=== PATIENT | female | born 1945 | race Caucasian/White ===

== ENCOUNTER → 2016-08-25 | Outpatient (CLI) | payer MEDICARE, OTHER ==
--- NOTE | 2016-08-25 16:59 | CT ---
EXAM DESCRIPTION: CT NECK WITHOUT THEN WITH IV CONTRAST CLINICAL HISTORY: 71 y/o F, MALIGNANT NEOPLASM OR OROPHARYNX COMPARISON: June 2013 and February 06, 2016 TECHNIQUE: Prior to and after the administration of contrast volumetric CT imaging of the neck was performed. FINDINGS: Nonremovable dental amalgam obscures certain portions of the tongue and oropharynx. The base of tongue and the floor of mouth are grossly unremarkable. The anterior aspect of the floor of mouth is not included on today's study. The mucosa of the nasopharynx is unremarkable. The mucosa of the oropharynx on today's exam demonstrates no gross abnormality. The epiglottis, bilateral AE folds, true and false cords demonstrate edematous changes compatible with radiation. There is no lymphadenopathy noted within the right aspect of the neck. There is no lymphadenopathy noted within the left aspect of the neck. Bilateral parotid glands and bilateral submandibular glands are unremarkable. Thyroid gland is stable. Three vessel aortic arch noted. Atherosclerotic disease noted within bilateral carotid arteries, likely no significant flow rate limiting narrowing. IMPRESSION: The large right oropharyngeal mucosal mass with extension into deep parapharyngeal soft tissues is no longer visualized. There remains minimal thickening of the right aspect of the oropharynx, but no definitive evidence of recurrence on today's study. No lymphadenopathy noted on today's exam to suggest metastatic disease. . Electronically signed by: Matias Campos MD 08/25/2016 16:58
== END | disposition home or self-care (01) ==
LOC: CT 13:27
PROVIDERS: ATTEND Internal Medicine Hematology & Oncology
DX: C10.8 Malignant neoplasm of overlapping sites of oropharynx (principal)

== ENCOUNTER → 2017-01-16 | Outpatient (CLI) | payer MEDICARE, OTHER | END | disposition home or self-care (01) | LOC: CT 09:23 | PROVIDERS: ATTEND Internal Medicine Hematology & Oncology | DX: C10.8 Malignant neoplasm of overlapping sites of oropharynx (principal); C43.70 Malignant melanoma of unspecified lower limb, including hip ==

== ENCOUNTER 2017-03-19 16:32 | Emergency (ER) | payer MEDICARE, OTHER ==
--- NOTE | 2017-03-19 20:04 | ED.PDOC ---
History of Present Illness - General Chief Complaint: Cardiovascular Problem Time Seen by Provider: 03/19/17 16:47 Source: patient Exam Limitations: no limitations - History of Present Illness Initial Comments: he patient is a 71-year-old female presenting to the emergency room secondary to feeling of fatigue and weakness and dizziness. The patient just started a new blood pressure medication today in the form of labetalol 300 mg 3 times daily. Within an hour or 2 of taking it she was feeling dizzy and weak and nauseated. She took her blood pressures systolics were in the 90s. Her normal recent systolic blood pressures have been in the 160s to 190s. She was getting dizzy with moving around. She had also taken 3 hydralazine prior. Timing/Duration: 1-3 hours Severity: moderate Improving Factors: nothing Worsening Factors: movement Associated Symptoms: loss of appetite, malaise, nausea/vomiting, weakness Allergies/Adverse Reactions: Allergies Amoxicillin [From Augmentin] Allergy (Verified 01/14/13 08:40) Clavulanic Acid [From Augmentin] Allergy (Verified 01/14/13 08:40) Codeine Allergy (Verified 01/14/13 08:40) Diazepam [From Valium] Allergy (Verified 01/14/13 08:40) Levofloxacin [From Levaquin] Allergy (Verified 01/14/13 08:40) Meperidine [From Demerol HCl] Allergy (Verified 01/14/13 08:40) Home Medications: Ambulatory Orders Gabapentin [Neurontin] 300 mg PO DAILY 12/19/13 Hydrochlorothiazide 25 mg PO DAILY 12/19/13 Metoprolol Succinate [Metoprolol Succinate ER] 50 mg PO DAILY 12/19/13 Omeprazole [Prilosec] 10 mg PO PRN PRN 12/19/13 Review of Systems - Review of Systems Constitutional: States: malaise, weakness EENTM: States: no symptoms reported Respiratory: States: no symptoms reported Cardiology: States: no symptoms reported Gastrointestinal/Abdominal: States: nausea Genitourinary: States: no symptoms reported Musculoskeletal: States: no symptoms reported Skin: States: no symptoms reported Neurological: States: anxiety, weakness Endocrine: States: no symptoms reported All other Systems: No Change from Baseline Past Medical History (General) - Patient Medical History Hx Stroke: No Hx Dementia: No Hx of COPD: No Hx Cardiac Disorders: No Hx Congestive Heart Failure: No Hx Hypertension: Yes Hx Thyroid Disease: No Hx Diabetes: No Hx Gastroesophageal Reflux: No Hx Renal Disease: No Hx Cancer: Yes - MELANOMA, PHARYNGEAL Surgical History: appendectomy, colectomy, other Family Medical History - Family History Mother Family History: Unknown Physical Exam - Physical Exam General Appearance: Alert, Anxious, No apparent distress Eye Exam: bilateral normal - 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 Ears, Nose, Throat: hearing grossly normal, normal ENT inspection, normal pharynx Neck: full range of motion, supple Respiratory: lungs clear, normal breath sounds, no respiratory distress, no accessory muscle use Cardiovascular/Chest: normal peripheral pulses, regular rate, rhythm, no edema Peripheral Pulses: radial,right: 2+, radial,left: 2+, dorsalis pedis,right: 2+, dorsalis pedis,left: 2+ Gastrointestinal/Abdominal: non tender, soft Rectal Exam: deferred Back Exam: normal inspection, no CVA tenderness Extremity: normal range of motion, non-tender, no pedal edema, normal capillary refill Neurologic: knot bumper II-XII nml as tested, alert, normal mood/affect, oriented x 3 Skin Exam: normal color Comments: Vital Signs - 24 hr 03/19/17 03/19/17 03/19/17 16:45 17:30 18:00 Temperature 97.6 F Pulse Rate [ 87 80 79 APICAL] Respiratory 18 18 13 Rate Blood Pressure 124/67 105/60 108/65 [LEFT BRACHIAL] O2 Sat by Pulse 95 95 95 Oximetry 03/19/17 19:00 Temperature Pulse Rate [ 78 APICAL] Respiratory 18 Rate Blood Pressure 133/78 [LEFT BRACHIAL] O2 Sat by Pulse 95 Oximetry Progress - Progress Progress: 03/19/17 20:04 the patient is a 71-year-old female presenting to the emergency room secondary to symptomatic hypotension that appears to be due to a new blood pressure medication. The patient has been monitored and her blood pressures have improved. Her symptoms have resolved. The patient is to reduce her labetalol to 150 mg twice daily and monitor her blood pressures in between. ER warnings were given. She does need to follow up with her primary care doctor early next week. Departure - Departure Clinical Impression: Hypotension, iatrogenic Disposition: Discharge to Home or Self Care Condition: Fair Departure Forms: ED Discharge - Pt. Copy, Patient Portal Self Enrollment Instructions: DI for Hypotension Diet: regular diet Activity: increase activity as tolerated Referrals: Rolando Wolf MD [Primary Care Provider] - 1-2 Weeks Home Medications: Ambulatory Orders Gabapentin [Neurontin] 300 mg PO DAILY 12/19/13 Hydrochlorothiazide 25 mg PO DAILY 12/19/13 Metoprolol Succinate [Metoprolol Succinate ER] 50 mg PO DAILY 12/19/13 Omeprazole [Prilosec] 10 mg PO PRN PRN 12/19/13 Additional Instructions: the patient is a 71-year-old female presenting to the emergency room secondary to symptomatic hypotension that appears to be due to a new blood pressure medication. The patient has been monitored and her blood pressures have improved. Her symptoms have resolved. The patient is to reduce her labetalol to 150 mg twice daily and monitor her blood pressures in between. ER warnings were given. She does need to follow up with her primary care doctor early next week.
[2017-03-19 20:23] VITALS: BP 109/53; TEMP 97; O2SAT 96
== END 2017-03-19 20:23 | disposition home or self-care (01) ==
LOC: ER 16:32
DX: I95.89 Other hypotension (principal); I10 Essential (primary) hypertension; Z85.820 Personal history of malignant melanoma of skin; Z85.819 Personal history of malignant neoplasm of unspecified site of lip, oral cavity, and pharynx; Z79.899 Other long term (current) drug therapy; Z88.3 Allergy status to other anti-infective agents; Z88.6 Allergy status to analgesic agent

== ENCOUNTER → 2017-04-23 | Outpatient (CLI) | payer MEDICARE, OTHER ==
--- NOTE | 2017-04-24 16:33 | MAM ---
EXAM DESCRIPTION: 3D Screening BILATERAL CLINICAL HISTORY: 71 yearsFemaleSCREENING . No complaints. No family history of breast cancer. Postmenopausal. Has taken HRT less than five years ago. COMPARISON: 2-D digital screening bilateral study 12/27/2014 and 06/01/2013. No prior reports available. TECHNIQUE: Bilateral CC and MLO projection full-field images, 3-D tomosynthesis digital mammographic technique. Also bilateral synthesized CC/ MLO full-field images. CAD not utilized. FINDINGS: The breast parenchymal density pattern is: Heterogeneously dense breast tissue, which may obscure small masses. No skin thickening or nipple retraction bilateral solitary microcalcifications and coarse calcifications. Bilateral vascular calcifications. Other groups of benign type calcifications bilaterally. Bilateral axillary lymph nodes. No focal, stellate mass or density, focal asymmetry , and no suspicious microcalcifications bilaterally. Stable mammograms compared to prior study, taking into account differences in mammographic technique IMPRESSION: BI-RADS CATEGORY: 2 - BENIGN FINDINGS. FOLLOW UP: Routine digital bilateral screening, one year interval from April 2017. Written communication explaining the IMPRESSION and follow-up, will be mailed to the patient and referring health care provider. According to the [employer], yearly mammograms are recommended starting at age 40 and continuing as long as a woman is in good health. Any breast change noted on a breast self-exam should be reported promptly to the patient's healthcare provider. Breast MRI is recommended for women with an approximately 20-25% or greater lifetime risk of breast cancer, including women with a strong family history of breast or ovarian cancer and women who have been treated for Hodgkin's disease. A negative mammographic report should not delay tissue diagnosis in patients with significant clinical history or physical findings. Extremely dense breast tissue limits the sensitivity of digital mammography. Electronically signed by: Toni Grider MD 04/24/2017 4:32 PM CDT
== END | disposition home or self-care (01) ==
LOC: MAMMO 13:00
PROVIDERS: ATTEND Family Medicine
DX: Z12.31 Encounter for screening mammogram for malignant neoplasm of breast (principal)
CPT/HCPCS: 77063; G0202

== ENCOUNTER → 2017-06-18 | Outpatient (CLI) | payer MEDICARE, OTHER ==
--- NOTE | 2017-06-20 17:14 | RAD ---
EXAM DESCRIPTION: Knee,Left Complete CLINICAL HISTORY: 71 years Female, PAIN IN LEFT KNEE COMPARISON: None. FINDINGS: There is no evidence of acute fracture or dislocation or destructive bony lesion. There is slight to moderate narrowing of the medial tibiofemoral joint space. Soft tissue fullness in the suprapatellar region is consistent with joint effusion. IMPRESSION: No acute bony abnormality identified. Medial compartment narrowing. Joint effusion. Electronically signed by: Efren Solis 06/20/2017 5:13 PM [facility]
--- NOTE | 2017-06-20 17:21 | RAD ---
EXAM DESCRIPTION: Pelvis CLINICAL HISTORY: 71 years Female, PAIN IN LEFT HIP COMPARISON: Image from an IVP dated November 03, 2008. FINDINGS: There is no evidence of acute fracture or dislocation or destructive bony lesion. Compared to the previous study, there appears to be slight chronic bony deformity in the left inferior pubic ramus, which may represent an old healed fracture. There are also slightly increased minor hypertrophic bony changes at the greater trochanters bilaterally and the lower margin of the left acetabulum. Both hip joint spaces and the SI joints as visualized appear maintained and symmetrical. IMPRESSION: No acute bony abnormality identified. Minor chronic appearing changes as described above. Electronically signed by: Efren Solis 06/20/2017 5:20 PM [facility]
== END ==
LOC: RAD 08:41
PROVIDERS: ATTEND Orthopaedic Surgery
DX: M25.562 Pain in left knee (principal); M25.552 Pain in left hip; M25.462 Effusion, left knee

== ENCOUNTER → 2017-09-16 | Outpatient (CLI) | payer MEDICARE, OTHER | LOC: GMAJ 10:46 | PROVIDERS: ATTEND Family Medicine | DX: I10 Essential (primary) hypertension (principal) ==

== ENCOUNTER → 2017-09-23 | Outpatient (CLI) | payer MEDICARE, OTHER ==
--- NOTE | 2017-09-23 17:23 | CT ---
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 MPR images are created and reviewed as well. FINDINGS: The left globe appears normal. 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 Lower portions of the brain are unremarkable. Pre and postcontrast imaging is performed. Strandy increased density in the fat along the right side of the base the tongue is noted with thickening of the soft tissues of the right oropharynx. This appears stable compared to the previous study. Findings were previously diagnosed as radiation changes in this patient with treated malignancy. No change in configuration since previous study suggested to suggest recurrent malignancy. Epiglottis appears normal. Slight irregularity of the supraglottic soft tissues is seen. The glottis appears symmetrical. Subglottic trachea is widely patent. Lung apices appear clear. Small left thyroid lesion could be further evaluated with sonography. Atrophic appearance of the submandibular glands is noted bilaterally. Parotid glands appear symmetrical. Normal aeration of tympanic cavities and mastoid air cells and included portions of paranasal sinuses. After IV contrast, there is normal enhancement of the vessels of the [place]. Normal cavernous sinus and transverse sinus and internal jugular enhancement with normal enhancement of the carotid arteries. Calcified plaque is seen at the right carotid bifurcation. Metal artifact related to dental amalgam obscures some levels. Parapharyngeal spaces appear symmetrical superiorly. Medial to the mandibular trigones, left parapharyngeal fat appears clear whereas the right appears infiltrated in a pattern unchanged compared to previous study. Some enhancing vessels are seen in the area but no definite enhancing mass lesion is identified on the postcontrast images to suggest recurrent malignancy. The soft tissue thickness of the posterior wall of the right oropharynx is thickened compared to the left side but unchanged. Coronal and sagittal reformatted images confirm the findings. No cervical adenopathy. Advanced degenerative changes are seen in the mid and lower C-spine. Epiglottis appears somewhat prominent in thickness likely related to previous therapy. No epiglottic mass. Aryepiglottic folds are prominent in thickness as well. IMPRESSION: No change in the appearance of the neck to suggest recurrence of malignancy. This exam was performed according to our departmental dose-optimization program, which includes automated exposure control, adjustment of the mA and/or kV according to patient size and/or use of iterative reconstruction technique. Total DLP equals 658.04 mGycm. Electronically signed by: Chapito Malcolm MD 09/23/2017 5:22 PM [facility]
== END ==
LOC: CT 10:02
PROVIDERS: ATTEND Internal Medicine Hematology & Oncology
DX: C10.8 Malignant neoplasm of overlapping sites of oropharynx (principal); C43.70 Malignant melanoma of unspecified lower limb, including hip

== ENCOUNTER → 2017-10-21 | Outpatient (CLI) | payer MEDICARE, OTHER | END | disposition home or self-care (01) | LOC: LAB.O 10:07 | PROVIDERS: ATTEND Orthopaedic Surgery | DX: M17.12 Unilateral primary osteoarthritis, left knee (principal) ==

== ENCOUNTER → 2017-10-27 | Outpatient (CLI) | payer MEDICARE, OTHER | END | disposition home or self-care (01) | LOC: GMAJ 12:15 | PROVIDERS: ATTEND Family Medicine | DX: E03.9 Hypothyroidism, unspecified (principal) ==

== ENCOUNTER → 2017-11-20 | Outpatient (CLI) | payer MEDICARE, OTHER ==
--- NOTE | 2017-11-20 16:08 | US ---
EXAM DESCRIPTION: Venous,Lower Extremity RT Venous, lower extremity left CLINICAL HISTORY: EFFUSION RT KNEE COMPARISON: None Available. TECHNIQUE: Right and left lower extremity venous duplex FINDINGS: Right Doppler evaluation of the right lower extremity deep veins was performed. Normal color flow is seen in the common femoral, superficial femoral, profunda femoral and greater saphenous veins. Normal flow is seen in the right popliteal vein and veins below the knee in the calf. Normal venous compressibility and flow augmentation. Left Doppler evaluation of the left lower extremity deep veins was performed. Normal color flow is seen in the common femoral, superficial femoral, profunda femoral and greater saphenous veins. Normal flow is seen in the left popliteal vein and veins below the knee in the calf. Normal venous compressibility and flow augmentation. IMPRESSION: Negative for evidence of deep venous thrombosis on right and left lower extremity venous Doppler sonogram. Electronically signed by: Chapito Malcolm MD 11/20/2017 4:07 PM CDT
== END ==
LOC: LAB.O 11:06
PROVIDERS: ATTEND Orthopaedic Surgery
DX: M79.605 Pain in left leg (principal); M25.461 Effusion, right knee

== ENCOUNTER → 2017-11-26 | Outpatient (CLI) | payer MEDICARE, OTHER | LOC: GMAJ 10:53 | PROVIDERS: ATTEND Family Medicine | DX: N30.00 Acute cystitis without hematuria (principal); R30.0 Dysuria ==

== ENCOUNTER → 2017-12-07 | Outpatient (CLI) | payer MEDICARE, OTHER | LOC: GMAJ 12:58 | PROVIDERS: ATTEND Family Medicine | DX: R10.84 Generalized abdominal pain (principal) ==

== ENCOUNTER → 2017-12-08 | Outpatient (CLI) | payer MEDICARE, OTHER | LOC: GMAJ 17:23 | PROVIDERS: ATTEND Family Medicine | DX: R10.84 Generalized abdominal pain (principal); R19.7 Diarrhea, unspecified ==

== ENCOUNTER → 2017-12-17 | Outpatient (CLI) | payer MEDICARE, OTHER | LOC: GMAJ 14:43 | PROVIDERS: ATTEND Family Medicine | DX: R10.84 Generalized abdominal pain (principal) ==

== ENCOUNTER → 2018-01-14 | Outpatient (CLI) | payer MEDICARE, OTHER | LOC: GMAJ 15:26 | PROVIDERS: ATTEND Family Medicine | DX: N30.00 Acute cystitis without hematuria (principal) ==

== ENCOUNTER 2018-02-13 13:22 | Emergency (ER) | payer MEDICARE, OTHER ==
[2018-02-13] MEDS ORDERED: amLODIPine BESYLATE 5 MG TAB PO ONE (14:01)
--- NOTE | 2018-02-13 15:19 | ED.PDOC ---
History of Present Illness - General Chief Complaint: Blood Pressure Problem Stated Complaint: high blood pressure Time Seen by Provider: 02/13/18 13:44 Source: patient Exam Limitations: no limitations - History of Present Illness Initial Comments: the patient is a 72-year-old female presenting to the emergency room secondary to elevated blood pressures the last for 5 days. Systolic blood pressures have been peaking around 200. She was recently changed from valsartan to losartan due to complications with that medication. Her blood pressures have not been controlled since. She does not have any symptoms. No headache chest pain or confusion. No shortness of breath. No signs of congestive heart failure. Timing/Duration: unsure Severity: mild Improving Factors: nothing Worsening Factors: nothing Associated Symptoms: denies symptoms Allergies/Adverse Reactions: Allergies Amoxicillin [From Augmentin] Allergy (Verified 01/14/13 08:40) Clavulanic Acid [From Augmentin] Allergy (Verified 01/14/13 08:40) Codeine Allergy (Verified 01/14/13 08:40) Diazepam [From Valium] Allergy (Verified 01/14/13 08:40) Levofloxacin [From Levaquin] Allergy (Verified 01/14/13 08:40) Meperidine [From Demerol HCl] Allergy (Verified 01/14/13 08:40) Home Medications: Ambulatory Orders Gabapentin [Neurontin] 300 mg PO BID 12/19/13 Metoprolol Succinate [Metoprolol Succinate ER] 100 mg PO BID 12/19/13 Omeprazole [Prilosec] 10 mg PO PRN PRN 12/19/13 Amlodipine Besylate 5 mg PO DAILY #30 tab 02/13/18 Calcium Carbonate-Cholecalcife [Caltrate 600+D] 1 tab PO DAILY 02/13/18 Clonidine HCl 0.1 mg PO BID PRN 02/13/18 Coenzyme Q10 (Ubidecarenone) [Co Q-10] 100 mg PO DAILY 02/13/18 Ezetimibe [Zetia] 10 mg PO DAILY 02/13/18 Fexofenadine HCl [Cassandra Allergy] 180 mg PO DAILY 02/13/18 Levothyroxine Sodium [Synthroid] 0.025 mg PO 0700 02/13/18 Losartan Potassium [Cozaar] 100 mg PO DAILY 02/13/18 Review of Systems - Review of Systems Constitutional: States: no symptoms reported EENTM: States: no symptoms reported Respiratory: States: no symptoms reported Cardiology: States: no symptoms reported Gastrointestinal/Abdominal: States: no symptoms reported Genitourinary: States: no symptoms reported Musculoskeletal: States: no symptoms reported Skin: States: no symptoms reported Neurological: States: no symptoms reported Endocrine: States: no symptoms reported All other Systems: No Change from Baseline Past Medical History (General) - Patient Medical History Hx Seizures: No Hx Stroke: No Hx Dementia: No Hx of COPD: No Hx Cardiac Disorders: No Hx Congestive Heart Failure: No Hx Pacemaker: No Hx Hypertension: Yes Hx Thyroid Disease: Yes Hx Diabetes: No Hx Gastroesophageal Reflux: No Hx Renal Disease: No Hx Cancer: Yes - MELANOMA, PHARYNGEAL - Vaccination History Hx Tetanus, Diphtheria Vaccination: No Hx Influenza Vaccination: No Hx Pneumococcal Vaccination: Yes - Social History Hx Alcohol Use: No Hx Depression: No - Female History Patient is a Female of Child Bearing Age (10 -59 yrs old): No Family Medical History - Family History Mother Family History: Unknown Physical Exam - Physical Exam General Appearance: Alert, Comfortable, No apparent distress Ears, Nose, Throat: hearing grossly normal, normal ENT inspection, normal pharynx Neck: full range of motion, supple Respiratory: lungs clear, normal breath sounds, no respiratory distress, no accessory muscle use Cardiovascular/Chest: normal peripheral pulses, regular rate, rhythm, no edema Peripheral Pulses: radial,right: 2+, radial,left: 2+, dorsalis pedis,right: 2+, dorsalis pedis,left: 2+ Gastrointestinal/Abdominal: non tender, soft Rectal Exam: deferred Extremity: non-tender, no pedal edema, no calf tenderness, normal capillary refill Neurologic: alert, normal mood/affect, oriented x 3 Skin Exam: normal color Comments: Vital Signs - 8 hr 02/13/18 02/13/18 13:36 14:44 Temperature 98.0 F Pulse Rate [ 63 60 Left Brachial] Respiratory 22 16 Rate Blood Pressure 187/102 141/82 [Left Arm] O2 Sat by Pulse 96 98 Oximetry Progress - Progress Progress: 02/13/18 15:18 the patient is a 72-year-old female presenting with moderately uncontrolled hypertension secondary to a required change in her blood pressure medications. she is largely asymptomatic. The patient has responded nicely to a dose of amlodipine. We are going to add a dose of 5 mg of amlodipine daily to her blood pressure medication regimen. If after a couple of days her blood pressures are still not adequately controlled then she can increase this to 10 mg. She does need to inform her primary care doctor of the medication change on Thursday. she can take her next dose tomorrow. ER warnings were given. Departure - Departure Clinical Impression: Chronic hypertension, Uncontrolled hypertension Disposition: Discharge to Home or Self Care Condition: Fair Departure Forms: ED Discharge - Pt. Copy, Patient Portal Self Enrollment Diet: regular diet Activity: increase activity as tolerated Referrals: Rolando Wolf MD [Primary Care Provider] - 1-2 Weeks Prescriptions: Amlodipine Besylate 5 mg PO DAILY #30 tab Home Medications: Ambulatory Orders Gabapentin [Neurontin] 300 mg PO BID 12/19/13 Metoprolol Succinate [Metoprolol Succinate ER] 100 mg PO BID 12/19/13 Omeprazole [Prilosec] 10 mg PO PRN PRN 12/19/13 Amlodipine Besylate 5 mg PO DAILY #30 tab 02/13/18 Calcium Carbonate-Cholecalcife [Caltrate 600+D] 1 tab PO DAILY 02/13/18 Clonidine HCl 0.1 mg PO BID PRN 02/13/18 Coenzyme Q10 (Ubidecarenone) [Co Q-10] 100 mg PO DAILY 02/13/18 Ezetimibe [Zetia] 10 mg PO DAILY 02/13/18 Fexofenadine HCl [Cassandra Allergy] 180 mg PO DAILY 02/13/18 Levothyroxine Sodium [Synthroid] 0.025 mg PO 0700 02/13/18 Losartan Potassium [Cozaar] 100 mg PO DAILY 02/13/18 Additional Instructions: the patient is a 72-year-old female presenting with moderately uncontrolled hypertension secondary to a required change in her blood pressure medications. she is largely asymptomatic. The patient has responded nicely to a dose of amlodipine. We are going to add a dose of 5 mg of amlodipine daily to her blood pressure medication regimen. If after a couple of days her blood pressures are still not adequately controlled then she can increase this to 10 mg. She does need to inform her primary care doctor of the medication change on Thursday. she can take her next dose tomorrow. ER warnings were given.
[2018-02-13 15:29] VITALS: BP 127/87; TEMP 97.4; O2SAT 95
== END 2018-02-13 15:29 | disposition home or self-care (01) ==
LOC: ER 13:22
DX: I10 Essential (primary) hypertension (principal); Z79.899 Other long term (current) drug therapy

== ENCOUNTER → 2018-03-25 | Outpatient (CLI) | payer MEDICARE, OTHER ==
--- NOTE | 2018-03-25 14:01 | CT ---
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 MPR images are created and reviewed as well. FINDINGS: Lung apices appear clear. Inhomogeneity of the thyroid gland may be streak artifact rather than a nodule. No cervical agustina enlargement. Subglottic trachea and glottis appear normal. Normal appearance of the epiglottis. Base of the tongue appears normal. No precervical soft tissue thickening or adenoidal enlargement. Asymmetric lower right parapharyngeal space is consistent with scarring from previous treated tumor in this area. This appears stable compared to September 23, 2017 study. The lower portion of the brain is unremarkable. Hyperdensity in the right orbital region may be prosthetic globe partly included on the study. Sagittal reformatted images confirm the findings. Slightly thickened appearance of the epiglottis is stable compared to previous study. No new mass or growing lesion to suggest recurrent neoplasm. Extensive degenerative changes in the C-spine. IMPRESSION: Stable posttreatment CT examination of the chest with no evidence of recurrent neoplasm. This exam was performed according to our departmental dose-optimization program, which includes automated exposure control, adjustment of the mA and/or kV according to patient size and/or use of iterative reconstruction technique. Total DLP equals 337.31 mGycm. Electronically signed by: Chapito Malcolm MD 03/25/2018 2:00 PM CDT
== END ==
LOC: CT 11:00
PROVIDERS: ATTEND Internal Medicine Hematology & Oncology
DX: C10.8 Malignant neoplasm of overlapping sites of oropharynx (principal); C43.70 Malignant melanoma of unspecified lower limb, including hip

== ENCOUNTER → 2018-04-13 | Outpatient (CLI) | payer MEDICARE, OTHER ==
--- NOTE | 2018-04-13 16:12 | MRI ---
EXAM DESCRIPTION: Cervical Spine: MRI. CLINICAL HISTORY: CERVICAL DISC DISORDER WITH RADICULOPATHY UNSPECIFIED CERV REGION COMPARISON: CT soft tissue neck 09/23/2017. TECHNIQUE: Multiplanar MRI, multiple sequences, non-contrast High-field. FINDINGS: C3-4: No disc desiccation. Disc space preserved. Canal and right neural foramina are patent. Arthrosis in the left facet joint. Moderate narrowing of the left neural foramina. C4-5: Moderate disc space loss and disc desiccation. Anterior and posterior disc bulging. Posterior disc bulge with posterior spurs and bilateral uncinate spurs. Mild canal narrowing. Mild left facet arthrosis. Moderate right neural foraminal stenosis and moderate left neural foraminal narrowing. C5-6: Disc desiccation and moderate disc space loss. No significant posterior bulge. Bilateral uncinate spurs, larger on the right with right neural foraminal stenosis. Moderate left neural foraminal narrowing. Bilateral facet arthrosis. C6-7: Disc desiccation and minimal disc space loss. Endplate erosions. Tiny posterior midline disc bulge not abutting the cord. Posterior ligament hypertrophy. Mild canal narrowing. Right uncinate spur and moderate neural foraminal narrowing. Mild neural foraminal narrowing left. Facets are unremarkable. Normal signal in the remaining discs with no bulging. Disc spaces preserved. Canal and neural foramina are patent. Facets are negative. Spinal alignment shows kyphosis C1-C4.. No cord compression or cord edema. Atlantoaxial joint . Mild arthrosis.. Base of the cerebellar tonsils is at the level of the foramen magnum. Paravertebral soft tissues are unremarkable. Vertebral bodies are not compressed at any level. Normal marrow signal in the remaining vertebral bodies and the posterior elements. IMPRESSION: 1. Multifactorial moderate right neural foraminal stenosis at C4-5. Also seen on the prior CT scan. 2. Right neural foraminal stenosis at C5-6. Also seen on the prior CT scan. 3. Moderate right neural foraminal narrowing at C6-7. Electronically signed by: Toni Grider MD 04/13/2018 4:11 PM CDT
== END ==
LOC: MRI 10:00
PROVIDERS: ATTEND Family Medicine
DX: M50.10 Cervical disc disorder with radiculopathy, unspecified cervical region (principal); M48.02 Spinal stenosis, cervical region

== ENCOUNTER → 2018-05-18 | Outpatient (CLI) | payer MEDICARE, OTHER ==
--- NOTE | 2018-05-20 09:31 | MAM ---
EXAM DESCRIPTION: 3D Screening BILATERAL : Digital Mammography. CLINICAL HISTORY: 72 years Female SCREENING patient complains of lump on left breast. Health provider did not feel the lump. No personal or family history of breast cancer. Childbirth. Postmenopausal 41 years. HRT 5 or more years ago.. Lifetime risk of developing breast cancer (Tyrer-Cuzick model)(%): 3.2. COMPARISON: Bilateral screening digital breast tomosynthesis 04/23/2017. TECHNIQUE: Bilateral CC and MLO projection full-field images, Digital tomosynthesis mammographic technique. Bilateral digital 2-D full-field MLO images. CAD not utilized. FINDINGS: The breast parenchymal density pattern is: Scattered areas of fibroglandular density. No skin thickening or nipple retraction. Bilateral axillary lymph nodes. Bilateral solitary microcalcifications. Bilateral solitary coarse calcifications. No new focal, stellate mass or density, focal asymmetry , and no suspicious microcalcifications bilaterally. Stable mammograms compared to prior study. IMPRESSION: Benign exam. BIRAD CATEGORY: 2 BENIGN FINDINGS. RECOMMENDATIONS: FOLLOW UP: Routine digital bilateral screening, one year interval from April 2018. Written communication explaining the IMPRESSION and follow-up, will be mailed to the patient and referring health care provider. According to the [employer], yearly mammograms are recommended starting at age 40 and continuing as long as a woman is in good health. Any breast change noted on a breast self-exam should be reported promptly to the patient's healthcare provider. Breast MRI is recommended for women with an approximately 20-25% or greater lifetime risk of breast cancer, including women with a strong family history of breast or ovarian cancer and women who have been treated for Hodgkin's disease. A negative mammographic report should not delay tissue diagnosis in patients with significant clinical history or physical findings. Extremely dense breast tissue limits the sensitivity of digital mammography. Electronically signed by: Toni Grider MD 05/20/2018 9:29 AM CDT
== END ==
LOC: MAMMO 05-14 13:03
PROVIDERS: ATTEND Family Medicine
DX: Z12.31 Encounter for screening mammogram for malignant neoplasm of breast (principal)

== ENCOUNTER 2018-06-07 05:55 | Day surgery (SDC) | payer MEDICARE, OTHER ==
[2018-06-07] MEDS ORDERED: TROP 1%/CYCLOPEN 1%/PHENYL 2% DROPS OPHTH ONE (05:56)
[2018-06-07] MEDS ORDERED: PROPARACAINE 0.5% OPHTH SOL 15 ML BTTL LEFT_EYE ONE (16:12)
== END 2018-06-07 16:27 | disposition home or self-care (01) ==
LOC: AMB 05:55
PROVIDERS: ATTEND Ophthalmology
DX: H26.492 Other secondary cataract, left eye (principal); I10 Essential (primary) hypertension; Z88.5 Allergy status to narcotic agent; Z88.1 Allergy status to other antibiotic agents

== ENCOUNTER → 2018-06-07 | Outpatient (CLI) | payer MEDICARE, OTHER ==
--- NOTE | 2018-06-07 19:31 | US ---
EXAM DESCRIPTION: Renal Arteries CLINICAL HISTORY: N18.3 COMPARISON: None. TECHNIQUE: Transcutaneous scanning: Two-dimensional modes. Doppler systolic and diastolic measurements of the abdominal aorta, renal arteries, intra renal arteries, and renal veins. FINDINGS: PSV (cm/sec): Aorta: 48.3 Right renal artery: 111.9 Left renal artery: 142.5 EDV (cm/sec): Right renal artery: 28.3 Left renal artery: 39.3 Renal veins: Visualized. IVC: Visualized. Renal artery RI's: Proximal Right: Not seen Left: Not seen. Middle Right: 0.75 Left: 0.72. Distal Right: 0.72 Left: 0.71 Renal Aortic Ratio: Right RAR = RRA PSV/Aortic PSV = 111.9 /48.3= 2.3. Left RAR = LRA PSV/Aortic PSV = 142.5/48.3 = 2.95. End Diastolic Ratio: Right EDR = RRA EDV/RRA PSV = 28.3/111.9 = 0.253. Left EDR = LRA EDV/LRA PSV = 39.3/142.5= 0.276. Anatomic survey was not performed. IMPRESSION: 1. Elevated renal aortic ratio on the left but no renal artery stenosis. 2. RI values for the renal arteries are borderline abnormal bilaterally. 3. End diastolic ratios are at the lower limit of normal, with no significant renal parenchymal disease Electronically signed by: Toni Grider MD 06/07/2018 7:29 PM [employer]STER [employer]MENT
== END ==
LOC: US 13:52
PROVIDERS: ATTEND Internal Medicine Nephrology
DX: N18.3 Chronic kidney disease, stage 3 (moderate) (principal)

== ENCOUNTER → 2018-07-27 | Outpatient (CLI) | payer MEDICARE, OTHER | LOC: GMAJ 10:26 | PROVIDERS: ATTEND Family Medicine | DX: E03.9 Hypothyroidism, unspecified (principal) ==

== ENCOUNTER → 2018-08-09 | Outpatient (CLI) | payer MEDICARE, OTHER | LOC: GMAJ 16:50 | PROVIDERS: ATTEND Family Medicine | DX: R10.9 Unspecified abdominal pain (principal) ==

== ENCOUNTER → 2018-08-31 | Outpatient (CLI) | payer MEDICARE, OTHER ==
--- NOTE | 2018-08-31 14:54 | US ---
EXAM DESCRIPTION: Abdomen,Complete: Ultrasound. CLINICAL HISTORY: UNSPECIFIED ABDOMINAL PAIN COMPARISON: None Available. TECHNIQUE: Transabdominal scannin-dimensional and Doppler modes. FINDINGS: Gallbladder: Normal size. Single echogenic stone mobile with patient change in position. 8 millimeter diameter. Normal wall thickness 1.2 mm. No surrounding fluid. Nontender with transducer pressure. Common bile duct: 5.7 mm normal caliber. Liver: Normal echogenicity. 15.7 cm long axis right lobe. Normal ducts and normal flow direction and caliber of the portal vein. Pancreas: Normal size of the included segment and echogenicity. Duct not seen. Abdominal aorta: Normal caliber from proximal segment to the distal bifurcation. IVC: visualized; normal caliber. Spleen normal echogenicity; long axis measurement is 10.2 cm. Right kidney: 9.1 cm long axis. Normal cortical echogenicity and thickness. No hydronephrosis or perinephric fluid. Normal vascularity. Left kidney: 9.7 cm long axis. Normal cortical echogenicity and thickness. No hydronephrosis or perinephric fluid. Normal vascularity. IMPRESSION: 1. Small mobile gallstone in the gallbladder with no wall thickening or surrounding fluid. Nontender with the transducer. 2., Bile duct nondistended. Normal ultrasound of the liver, pancreas, and spleen. No ascites. 3. Bilateral kidneys are unremarkable. Normal caliber of the abdominal aorta and the IVC. Electronically signed by: Toni Grider MD 08/31/2018 2:51 PM PERSONAL FINANCIAL ADVISOR
== END ==
LOC: US 10:00
PROVIDERS: ATTEND Family Medicine
DX: K80.20 Calculus of gallbladder without cholecystitis without obstruction (principal)

== ENCOUNTER → 2018-09-08 | Outpatient (CLI) | payer MEDICARE, OTHER ==
--- NOTE | 2018-09-08 15:50 | RAD ---
EXAM: Abdomen Flat Upright CLINICAL HISTORY: R10.11 RUQ PAIN COMPARISON STUDY: None. TECHNICAL: Flat and upright abdomen images FINDINGS: Non-obstructive gas pattern. The bony structures are grossly normal. A calcification in the left pelvis is in the region of the left distal ureter that could be a phlebolith. Postoperative changes are seen in the right lower quadrant. Calcified granulomata are seen in both lungs. IMPRESSION: 1. No bowel obstruction or free air. 2. 3 x 3.5 mm left pelvic calcification is a phlebolith versus a left distal ureteral calculus. Electronically signed by: Modesto Castro MD 09/08/2018 3:47 PM CREATIVE INTERN
== END ==
LOC: RAD 11:34
PROVIDERS: ATTEND Surgery
DX: R10.11 Right upper quadrant pain (principal)

== ENCOUNTER → 2019-03-16 | Outpatient (CLI) | payer MEDICARE, OTHER | LOC: LAB.O 10:07 | PROVIDERS: ATTEND Otolaryngology | DX: R13.10 Dysphagia, unspecified (principal); J39.8 Other specified diseases of upper respiratory tract; J38.7 Other diseases of larynx; K22.2 Esophageal obstruction ==

== ENCOUNTER 2019-03-30 11:14 | Inpatient (IN) | payer MEDICARE, OTHER ==
--- NOTE | 2019-03-30 11:15 | HP ---
SUPERVISING PHYSICIAN: Rolando Wolf MD CHIEF COMPLAINT: Acute renal failure. HISTORY OF PRESENT ILLNESS: This is a 73 year-old female who presented from Dr. Wolf office directly. She has a history of throat cancer and actually requires dilation on occasion. She had this last Thursday, woke up from the anesthesia generally not feeling well. Since that time, she has still not felt well, decreased appetite and has not taken much p.o. She had a followup yesterday and was cleared by the surgeon who did that, however, still did not feel well. She has no complaints of fever or chills. She did see Dr. Wolf today and she did not look well at that time. Strep test was done and it was positive for streptococcal pharyngitis. She was given a dose of Rocephin but also had additional labs done which included CBC and chemistry. CBC was pretty much unremarkable, however, she did have a significantly elevated creatinine to 6.6. She does have some chronic renal failure but her baseline is 1.4. For that reason, she was referred for a direct admission. Final Examination: The patient is alert and oriented. She does not have any significant fever to speak of, no chills but general malaise. She also had epigastric discomfort as well. PAST MEDICAL HISTORY: 1. Hypertension. 2. Cholelithiasis. 3. Colon polyps. 4. Diverticulosis. 5. Gastroesophageal reflux disease. 6. Arthritis. 7. History of colon cancer. 8. History of melanoma. 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 11. Hemorrhoids. PAST SURGICAL HISTORY: 1. Tonsillectomy. 2. Bladder suspension. 3. Hysterectomy. 4. Bilateral salpingo-oophorectomy. 5. Right eye enucleation. 6. Hemicolectomy. 7. Colonoscopy, EGDs CURRENT MEDICATIONS: Please see EMR once they are verified in the computer. ALLERGIES: Avelox, Bactrim, Demerol, Augmentin, Celexa, Crestor, Levaquin, Lorabid, mycin antibiotics, Norvasc, Zetia, Zyrtec. FAMILY HISTORY: Her father of emphysema. Her mother had hypertension and hyperlipidemia. She lives in a skilled nursing. SOCIAL HISTORY: She is a former smoker, has occasional alcohol use. No illicit drugs. REVIEW OF SYSTEMS: CONSTITUTIONAL: No fever, chills, recent weight loss or weight gain. Positive for malaise. HEENT: Throat pain but no vision changes, ear pain, nasal congestion. RESPIRATORY: No cough. No hemoptysis. No pleuritic chest pain. CARDIOVASCULAR: No chest pain, palpitations or peripheral edema. . GASTROINTESTINAL: Positive for some epigastric abdominal discomfort. No nausea, vomiting, diarrhea, constipation. GENITOURINARY: No history of frequency or flank pain. She has had decreased urine output. MUSCULOSKELETAL: No joint pain, joint swelling or muscle cramps. NEUROLOGIC: No seizures or syncope. No paresthesias. ENDOCRINE: No polydipsia, polyuria or polyphagia. No heat or cold intolerance. HEMATOLOGIC: No easy bruising and no transfusion reactions. PHYSICAL EXAMINATION: GENERAL: This is a 73 year-old female who is without acute distress. HEENT: Normocephalic and atraumatic. Left pupil is reactive, right has artificial. Nose with no drainage. Throat with erythema, no exudate. CHEST: Lungs are clear to auscultation bilaterally. CARDIOVASCULAR: Regular rate and rhythm, normal S1, S2. ABDOMEN: Soft, positive bowel sounds. EXTREMITIES: Lower extremities with no edema, 2+ pulses, capillary refill less than 2 seconds. NEUROLOGIC: The patient is alert and oriented. LABORATORY: From the office shows a sodium of 134, potassium 4.1, chloride 95, C02 of 24, BUN 54, creatinine 6.6, glucose 123, calcium 8.7. White blood cell count 8.3, hemoglobin 14.2, hematocrit 40.8. Platelet count of 195,000. Strep screen was positive. ASSESSMENT: 1. Acute on chronic renal failure. 2. Streptococcal pharyngitis. 3. Hypertension. 4. History of throat cancer status post throat dilation. 5. Hypothyroidism. 6. Gastroesophageal reflux disease. PLAN: At this time, the patient will be admitted for fluid resuscitation. Her pole river was contacted, who I believe is Dr. Meyers, and once we give some fluids will see how her BUN and creatinine do. Suspect that this is acute tubular necrosis and should respond to fluids fairly well. There is an off chance that this is due to glomerulonephritis, however, unlikely at this time. Will resume her home medications once they are updated and verified. We placed her on DVT and GI ulcer prophylaxis as well as IV antibiotics for streptococcal pharyngitis until she is taking p.o. better. [facility][id number] [facility]
[2019-03-30] MEDS ORDERED: SODIUM CHLORIDE 0.9% (FLUSH) 10 ML SYG IV PRN (12:15)
[2019-03-30] MEDS ORDERED: SODIUM CHL 0.9% 50ML MIN-BAG+ 50 ML IVPB ONE (12:24)
[2019-03-30] MEDS ORDERED: cefTRIAXone SODIUM 1 GM VIAL ONE (12:24)
[2019-03-30] MEDS ORDERED: IV SET AND CAP CHANGE INJ INJ SCH (12:30)
[2019-03-30] MEDS ORDERED: ENOXAPARIN SODIUM 30 MG/0.3 ML SYG SUBCU SCH (12:30)
[2019-03-30] MEDS ORDERED: PANTOPRAZOLE SODIUM IV 40 MG VIAL IV SCH (12:30)
[2019-03-30] MEDS: SODIUM CHLORIDE 0.9% 1000ML 1,000 ML IVS PRN ×2 (13:03→20:31)
[2019-03-30] MEDS ORDERED: SODIUM CHLORIDE 0.9% 1000ML 1,000 ML IVS PRN (13:36)
[2019-03-30] MEDS: cefTRIAXone SODIUM 1 GM in SODIUM CHL 0.9% 50ML MIN-BAG+ 50 ML IVPB SCH (13:56)
[2019-03-30] MEDS: GABAPENTIN 100 MG CAP PO SCH (20:36)
[2019-03-30] MEDS ORDERED: traMADol HCL 50 MG TAB PO PRN (20:40)
[2019-03-31] MEDS: SODIUM CHLORIDE 0.9% 1000ML 1,000 ML IVS PRN (03:53)
[2019-03-31] MEDS: PANTOPRAZOLE SODIUM IV 40 MG VIAL IV SCH (06:16)
[2019-03-31] MEDS: LEVOTHYROXINE SODIUM 0.025 MG TAB PO SCH (06:16)
[2019-03-31] MEDS ORDERED: SODIUM BICARBONATE VIAL 100 MEQ in DEXTROSE 5% 1000ML 1,000 ML IVS PRN (06:42)
[2019-03-31] MEDS ORDERED: SODIUM CHLORIDE 0.9% 1000ML 1,000 ML IVS ONE (06:43)
[2019-03-31] MEDS ORDERED: DEXTROSE 5% 1000ML 1,000 ML IVS ONE (07:56)
[2019-03-31] MEDS ORDERED: SODIUM BICARBONATE VIAL 50 MEQ/50 ML VIAL ONE (07:56)
[2019-03-31] MEDS: EZETIMIBE 10 MG TAB PO SCH (09:57)
[2019-03-31] MEDS: LORATADINE 10 MG TAB PO SCH (09:58)
[2019-03-31] MEDS: GABAPENTIN 100 MG CAP PO SCH ×2 (09:58→20:30)
[2019-03-31] MEDS ORDERED: SODIUM BICARBONATE VIAL 100 MEQ in DEXTROSE 5% 1000ML 1,000 ML IVS ONE (10:02)
--- NOTE | 2019-03-31 11:24 | PN ---
SUPERVISING PHYSICIAN: Rolando Wolf MD DATE: 03/31/19 SUBJECTIVE: The patient is lying in bed. She feels much better today. She denies shortness of breath, chest pain or nausea or vomiting. Her throat still hurts but is improved since yesterday. We discussed her plan of care and I will be calling Dr. Lawrence, her link trainer teacher, for recommendations. OBJECTIVE: VITAL SIGNS: Temperature 98.6, heart rate 77, blood pressure 105/62, respiratory rate 16, oxygen saturation 94% on room air. HEENT: Her throat is erythematous but no exudate noted. RESPIRATORY: Essentially clear to auscultation bilaterally. CARDIAC: Regular rate and rhythm. GI: Abdomen is soft, non-tender, nondistended. Bowel sounds are positive. NEUROLOGIC: She is awake, alert, and oriented x3. LABORATORY: CBC is unremarkable. Sodium 131, potassium 3.8, chloride 97, carbon dioxide 20, BUN 59, creatinine 7.18, calcium 7.9, All other labs and films have been reviewed via the EMR. ASSESSMENT: 1. Acute on chronic renal failure, baseline is 1.4, admission 6, today 7.6. 2. Streptococcal pharyngitis. 3. Hypertension. 4. History of throat cancer status post throat dilation. 5. Hypothyroidism. 6. Gastroesophageal reflux disease. PLAN: We will continue present supportive care. I spoke with Dr. Lawrence. her link trainer teacher in [facility]. He recommended we give one bag of IV fluids that contain sodium/bicarb and his biggest concerns are her potassium and her C02 as well as her urine output. I have ordered labs for in the morning and have also ordered strict I&O every 4 hours. She may need additional fluid bolus. Will continue with the Rocephin. He also would like to see her after discharge next week and I will send her to Dr. Wolf office at discharge and he can do a followup appointment with Dr. Lawrence at that time. He also said that her creatinine may go up before it comes down but that if we hydrate her well and her urine output is good, her creatinine should slowly improve. Her ARB has not been restarted nor has her Hydrochlorothiazide and we are to keep those on hold for right now and will continue to monitor close and follow as needed. [id number] [facility]
[2019-03-31] MEDS: HEPARIN SODIUM (PORCINE) 5,000 U/ML VIAL SUBCU SCH ×2 (12:22→23:56)
[2019-03-31] MEDS ORDERED: SODIUM CHL 0.9% 50ML MIN-BAG+ 50 ML IVPB ONE (13:30)
[2019-03-31] MEDS ORDERED: cefTRIAXone SODIUM 1 GM VIAL ONE (13:31)
[2019-03-31] MEDS: cefTRIAXone SODIUM 1 GM in SODIUM CHL 0.9% 50ML MIN-BAG+ 50 ML IVPB SCH (13:33)
[2019-04-01] MEDS: PANTOPRAZOLE SODIUM IV 40 MG VIAL IV SCH (06:04)
[2019-04-01] MEDS: LEVOTHYROXINE SODIUM 0.025 MG TAB PO SCH (06:25)
[2019-04-01] MEDS: LORATADINE 10 MG TAB PO SCH (08:08)
[2019-04-01] MEDS: GABAPENTIN 100 MG CAP PO SCH ×2 (08:09→20:39)
[2019-04-01] MEDS: EZETIMIBE 10 MG TAB PO SCH (08:09)
[2019-04-01] MEDS: HEPARIN SODIUM (PORCINE) 5,000 U/ML VIAL SUBCU SCH ×2 (11:55→23:56)
[2019-04-01] MEDS ORDERED: SODIUM CHL 0.9% 50ML MIN-BAG+ 50 ML IVPB ONE (14:20)
[2019-04-01] MEDS ORDERED: cefTRIAXone SODIUM 1 GM VIAL ONE (14:21)
[2019-04-01] MEDS: cefTRIAXone SODIUM 1 GM in SODIUM CHL 0.9% 50ML MIN-BAG+ 50 ML IVPB SCH (14:22)
[2019-04-01] MEDS ORDERED: AZITHROMYCIN 250 MG TAB PO ONE (15:37)
--- NOTE | 2019-04-01 17:23 | PN ---
DATE: 04/01/19 SUPERVISING PHYSICIAN: Rolando Wolf M.D. SUBJECTIVE: The patient is lying in bed. She does feel better. Her throat is less sore. Denies chest pain or shortness of breath. She did complain of a rash on her right upper leg. She is not taking any new medications except Rocephin which she was given in the hospital. It is mildly pruritic. OBJECTIVE: VITAL SIGNS: Temperature 98.4, heart rate 71, blood pressure 131/87, respiratory rate 17, O2 sat 94% on room air. RESPIRATORY: Essentially clear to auscultation bilaterally. CARDIAC: Regular rate and rhythm. GASTROINTESTINAL: Abdomen is soft, nondistended, non-tender. Bowel sounds are positive. SKIN: She does have an erythematous wheel type rash on her right upper thigh. There is no drainage noted. NEUROLOGIC: She is awake, alert and oriented times three. LABORATORY: CBC is basically unremarkable. Sodium 132, potassium 3.6, chloride 95, carbon dioxide 23, BUN 53, creatinine has improved to 6.11. All other labs and films have been reviewed via the EMR. ASSESSMENT: 1. Acute on chronic renal failure, baseline is 1.4. Admission creatinine was 6, today it is 6.11. 2. Streptococcal pharyngitis. 3. Hypertension. 4. Mildly pruritic wheel type rash on her right upper leg of unknown etiology. 5. History of throat cancer status post throat dilation. 6. Hypothyroidism on supplementation. 7. Gastroesophageal reflux disease. PLAN: We will continue present supportive care. Her IV site was not patent, so it was discontinued and all of her IV medications were stopped. Due to the rash I have stopped the Rocephin, although the patient has had Rocephin in the past without any problems and I will change her to azithromycin. I spoke with her civil service worker, Dr. Mathew, and he was pleased with her progress. He agreed to continue present plan of care with close urine output monitoring. She is to see Dr. Wolf on Thursday. He would like to see her in office next week. He also recommended that she not be continued on her ARB or her Hydrochlorothiazide. I have ordered lab for in the morning. Will continue to monitor closely and follow as needed. #[id number] [facility]
[2019-04-02] MEDS ORDERED: PANTOPRAZOLE SODIUM TAB 40 MG PO SCH (06:30)
[2019-04-02 06:31] VITALS: TEMP 98.1
[2019-04-02] MEDS: LEVOTHYROXINE SODIUM 0.025 MG TAB PO SCH (06:33)
[2019-04-02] MEDS: LORATADINE 10 MG TAB PO SCH (08:05)
[2019-04-02] MEDS: EZETIMIBE 10 MG TAB PO SCH (08:05)
[2019-04-02] MEDS: GABAPENTIN 100 MG CAP PO SCH (08:05)
[2019-04-02] MEDS ORDERED: SODIUM CHLORIDE 0.9% (FLUSH) 10 ML SYG IV PRN (08:16)
[2019-04-02] MEDS ORDERED: POTASSIUM CHLORIDE 20 MEQ TAB PO ONE (08:31)
[2019-04-02] MEDS ORDERED: AZITHROMYCIN 250 MG TAB PO SCH (09:00)
[2019-04-02] MEDS ORDERED: SODIUM CHLORIDE 0.9% (FLUSH) 10 ML SYG IV SCH (09:00)
[2019-04-02] MEDS ORDERED: METOPROLOL SUCCINATE XL 50 MG TAB PO SCH (10:30)
[2019-04-02] MEDS ORDERED: METOPROLOL SUCCINATE XL 100 MG TAB PO ONE (10:52)
[2019-04-02] MEDS ORDERED: METOPROLOL SUCCINATE XL 50 MG TAB ONE (10:55)
[2019-04-02 11:29] VITALS: BP 133/69; O2SAT 99
[2019-04-02] MEDS ORDERED: MAGNESIUM CHLORIDE 64 MG TAB PO SCH (17:00)
--- NOTE | 2019-04-03 21:37 | DS ---
SUPERVISING PHYSICIAN: Rolando Wolf M.D. DISCHARGE DIAGNOSIS: 1. Acute on chronic renal failure, baseline creatinine is 1.4. Admission creatinine initially was 6 and went up to 7.18. Today it is 4.61. 2. Streptococcal pharyngitis. 3. Hypertension on medications. 4. Mildly pruritic wheel type rash on her right upper leg of unknown etiology, may be due to Rocephin administration, although the patient has taken Rocephin in the past without issues. 5. History of throat cancer status post throat dilation. 6. Hypothyroidism on supplementation. 7. Gastroesophageal reflux disease. HISTORY OF PRESENT ILLNESS: This is a 73 year-old female patient who had seen her family physician, Dr. Wolf. She has a history of throat cancer and actually requires dilation occasionally. The previous Thursday she had dilation done and woke up from the anesthesia and she generally just did not feel well. She has progressively worsened with a decreased appetite and has taken very little oral intake. She had seen her surgeon the day prior to seeing Dr. Wolf and she was cleared from his perspective, but she continued to feel poorly. There were no complaints of fever or chills. She went to see Dr. Wolf. A Strep test was done and it was positive for Streptococcal pharyngitis. She was given a dose of Rocephin at the office and then had additional labs done which included a CBC and chemistry. Her CBC was fairly unremarkable, however she did have a significantly elevated creatinine of 6.6. She has some chronic renal insufficiency but her baseline creatinine is 1.4. She was directly admitted to the hospital and her housing counselor, Dr. Mathew, was called by Dr. Wolf for recommendations. HOSPITAL COURSE: The patient was placed in the hospital and given fluid resuscitation. Her home medications were resumed with the exception of her Losartan and Hydrochlorothiazide. DVT prophylaxis was started as well as GI ulcer prophylaxis. She was also continued on Rocephin for Streptococcal pharyngitis. She was placed in clear liquids due to her feeling poorly and her diet was advanced as tolerated. Dr. Mathew, her housing counselor, was contacted and he felt that 1 bag of IV fluids with sodium bicarb would be sufficient to help with her renal issues. Then she was titrated off of her fluids as her oral intake improved. His most concern was with her urine output as well as watching her CO2 and potassium. Her labs were monitored closely. On the third day she was here, she complained of a wheel-like rash on her right upper thigh. The only new medication that she has received was Rocephin and she has taken that in the past without any problems, but the Rocephin was discontinued and she was started on azithromycin. Her creatinine continued to improve as well as her CO2 normalized. Potassium remained normal until this morning and it was slightly low at 3.2 and required supplementation. Magnesium was also low and she required supplementation for that as well. Dr. Mathew was contacted yesterday and felt like she could be discharged with close followup with Dr. Wolf. Clinically the patient has improved to the point that she will be discharged home today in stable condition. LABORATORY: WBCs remained stable around 5.6 and today it was 4.5. Hemoglobin and hematocrit were 11.6 and 33.9. The remainder of her CBC was unremarkable. Sodium was slightly low on admission at 131 and today it has normalized to 135. Potassium remained normal until today at 3.2 and she received supplementation. Chloride was slightly low and ran between 95 and 97. Carbon dioxide initially was 20 and is now 24. BUN was 59 on admission and has improved to 48 today. Creatinine maximum elevation was 7.18 and today it is 4.61. Calcium was initially 7.9 and today is 8.4. Magnesium was low yesterday at 1.6 and she required supplementation. RADIOLOGY: There were no radiology reports to report. DISCHARGE PLAN: The patient will be discharged home in stable condition. She is to resume her previous diet. It is recommended that she start with a bland diet and advanced it as tolerated. She has a followup with Dr. Wolf on 04/04/19 at 2:00 PM. At that time it is recommended that she get a BMP plus a magnesium. In addition to her routine medications, she is to continue with 3 tablets of azithromycin for her Strep infection. Per the recommendations of Dr. Mathew, she is to discontinue her Losartan as well as Hydrochlorothiazide until she sees him after discharge. At her appointment with Dr. Wolf, Dr. Mathew would like to be contacted as he would like to see her later in the week in clinic and would like a report on her kidney function at the time of her appointment with Dr. Wolf. Again, he said for her not to take her Losartan or HCTZ. She is to return to the hospital or call Dr. Wolf' office for any problems or complications. DISCHARGE MEDICATIONS: 1. Metoprolol. 2. Gabapentin. 3. Levothyroxine. 4. Zetia. 5. Cassandra. 6. Clonidine. 7. azithromycin. [facility][id number] [facility]
== END 2019-04-02 11:38 | disposition home or self-care (01) | DRG 684 ==
LOC: MS 11:14
PROVIDERS: ADMIT Nurse Practitioner; ATTEND Nurse Practitioner Acute Care
DX: N17.9 Acute kidney failure, unspecified (principal); J02.0 Streptococcal pharyngitis; R21 Rash and other nonspecific skin eruption; E87.6 Hypokalemia; E83.42 Hypomagnesemia; I12.9 Hypertensive chronic kidney disease with stage 1 through stage 4 chronic kidney disease, or unspecified chronic kidney disease; N18.9 Chronic kidney disease, unspecified; E03.9 Hypothyroidism, unspecified; K21.9 Gastro-esophageal reflux disease without esophagitis; M19.90 Unspecified osteoarthritis, unspecified site; Z85.818 Personal history of malignant neoplasm of other sites of lip, oral cavity, and pharynx; Z98.890 Other specified postprocedural states; Z85.038 Personal history of other malignant neoplasm of large intestine; Z88.8 Allergy status to other drugs, medicaments and biological substances; Z88.3 Allergy status to other anti-infective agents; Z88.5 Allergy status to narcotic agent; Z88.1 Allergy status to other antibiotic agents; Z87.891 Personal history of nicotine dependence

== ENCOUNTER → 2019-04-04 | Outpatient (CLI) | payer MEDICARE, OTHER | LOC: GMAJ 16:52 | PROVIDERS: ATTEND Family Medicine | DX: N17.9 Acute kidney failure, unspecified (principal) ==

== ENCOUNTER → 2019-04-09 | Outpatient (CLI) | payer MEDICARE, OTHER | LOC: GMATM 18:22 | PROVIDERS: ATTEND Nurse Practitioner Family | DX: R31.9 Hematuria, unspecified (principal); M46.1 Sacroiliitis, not elsewhere classified; M54.5 Low back pain ==

== ENCOUNTER → 2019-04-15 | Outpatient (CLI) | payer MEDICARE, OTHER ==
--- NOTE | 2019-04-17 16:43 | MRI ---
EXAM DESCRIPTION: Lumbar Spine w/o Contrast : Magnetic Resonance Imaging. CLINICAL HISTORY: OTHER INTERVERTEBRAL DISC DISPLACEMENT LUMBOSACRAL REGION COMPARISON: LUMBAR TECHNIQUE: Multiplanar, multiple standard sequences, non contrast MRI, lumbar spine. FINDINGS: L5-S1: The disc is well visualized on axial T2 series 501, image 3. Disc normal signal and disc space preserved. No significant bulging. Minimal hypertrophic left facet arthrosis and thickening of the ligaments with canal patent. Mild bilateral foraminal narrowing more left than right. Minimal soft tissue edema abutting the left facet. Similar findings on the prior study. L4-L5: Disc desiccation and minimal disc space loss. No significant posterior disc bulge. Bilateral facet hypertrophic arthrosis and thickening of the ligaments. AP canal diameter 10 mm. This is narrowed since the prior study. Mild left foraminal narrowing with right foramen patent. Hyperintense T1 and T2 signal in the superior L4 endplate consistent with a hemangioma. L3-L4: Disc desiccation and minimal disc space loss. Hypertrophic facet arthrosis and thickening of the ligaments. AP canal diameter 11 mm. Minimal disc bulge posteriorly into the canal and into the left foramen. Mild left foraminal narrowing with right foramen patent. Stable since the prior study. Hyperintense T1 and T2 signal in the superior L3 endplate in the midline consistent with a hemangioma. L2-L3: Disc desiccation anterior disc space loss and anterior disc bulging and endplate ridging. Minimal posterior disc bulge. Hypertrophic facet arthrosis and thickening of the ligaments AP canal diameter 12 mm. Slight progression since the prior study. Bilateral foramina are patent. Circumscribed hyperintense T1 and T2 hemangioma in the posterior superior L2 vertebral body. L1-L2: Disc desiccation with anterior disc bulge to the right of midline. Trace posterior disc bulge. Hypertrophic facet arthrosis and posterior ligament thickening AP canal diameter 12 mm. Bilateral foramina are patent. Circumscribed hyperintense T1 and T2 hemangioma in the L1 vertebral body. Stable since the prior study. Conus terminates just above the disc space. T12-L1: Normal signal in the disc with disc space preserved. No bulging. Posterior elements with similar hypertrophic changes as the lower levels. Canal and foramina are patent. No change since the prior study. L1-L4 levoscoliosis stable. Paravertebral soft tissues paraspinal muscle atrophy. Distal cord normal signal and caliber. Otherwise normal marrow signal in the remaining vertebral bodies and the posterior elements. Vertebral bodies are not compressed at any level. IMPRESSION: 1. Minimal disc desiccation some levels but no disc herniation. No advanced canal or foraminal stenosis. Pathology with some progression at every level since the prior study. L1-L4 levoscoliosis is unchanged. 2. Borderline mild central canal stenosis at L4-L5 from hypertrophic posterior elements. This has progressed since the prior study. 3. Moderate central canal narrowing at L3-L4, and no change from the prior study. No significant foraminal narrowing. 4. Multifactorial mild to moderate canal narrowing at L2-L3. Bilateral foramina are patent. Slight progression since the prior study. Electronically signed by: Toni Grider MD 04/17/2019 4:41 PM CDT
== END ==
LOC: MRI 10:18
PROVIDERS: ATTEND Family Medicine
DX: M51.27 Other intervertebral disc displacement, lumbosacral region (principal); M51.36 Other intervertebral disc degeneration, lumbar region; M48.061 Spinal stenosis, lumbar region without neurogenic claudication

== ENCOUNTER → 2019-05-06 | Outpatient (CLI) | payer MEDICARE, OTHER ==
--- NOTE | 2019-05-09 12:09 | MAM ---
EXAM DESCRIPTION: 3D Screening BILATERAL : Digital Mammography. CLINICAL HISTORY: 73 years Female SCREENING . No complaints. No personal or family history of breast cancer. Menarche age 15. Childbirth. Postmenopausal 40+ years. HRT less than 5 years ago.. Lifetime risk of developing breast cancer (Tyrer-Cuzick model)(%): 3.0. COMPARISON: Bilateral screening digital breast tomosynthesis 18 May 2018 and 23 April 2017.. TECHNIQUE: Bilateral CC and MLO projection full-field images, digital tomosynthesis mammographic technique. Bilateral digital 2-D full-field MLO images. CAD not available for tomosynthesis or 2-D images. FINDINGS: The breast parenchymal density pattern is: Heterogeneously dense breast tissue, which may obscure small masses. No skin thickening or nipple retraction. Bilateral solitary microcalcifications and scattered microcalcifications throughout the dense fibroglandular tissues. Bilateral vascular calcifications. Bilateral axillary lymph nodes. No new focal, stellate mass or density, focal asymmetry , and no suspicious microcalcifications bilaterally. Stable mammograms compared to prior study. IMPRESSION: Benign exam. BIRAD CATEGORY: 2 BENIGN FINDINGS. RECOMMENDATIONS: FOLLOW UP: Routine digital bilateral mammographic screening, one year interval from April 2019. Written communication explaining the IMPRESSION and follow-up, will be mailed to the patient and referring health care provider. According to the [employer], yearly mammograms are recommended starting at age 40 and continuing as long as a woman is in good health. Any breast change noted on a breast self-exam should be reported promptly to the patient's healthcare provider. Breast MRI is recommended for women with an approximately 20-25% or greater lifetime risk of breast cancer, including women with a strong family history of breast or ovarian cancer and women who have been treated for Hodgkin's disease. A negative mammographic report should not delay tissue diagnosis in patients with significant clinical history or physical findings. Extremely dense breast tissue limits the sensitivity of digital mammography. Electronically signed by: Toni Grider MD 05/09/2019 12:07 PM CDT
== END ==
LOC: MAMMO 11:16
PROVIDERS: ATTEND Family Medicine
DX: Z12.31 Encounter for screening mammogram for malignant neoplasm of breast (principal)

== ENCOUNTER → 2019-07-08 | Outpatient (CLI) | payer MEDICARE, OTHER | LOC: GMAJ 10:44 | PROVIDERS: ATTEND Family Medicine | DX: D51.9 Vitamin B12 deficiency anemia, unspecified (principal); E03.9 Hypothyroidism, unspecified; I10 Essential (primary) hypertension; E78.2 Mixed hyperlipidemia ==

== ENCOUNTER 2019-12-09 05:45 | Day surgery (SDC) | payer MEDICARE, OTHER ==
--- NOTE | 2019-12-05 07:48 | RAD ---
EXAM DESCRIPTION: Chest,2 Views CLINICAL HISTORY: PREOP ORDER COMPARISON: None available FINDINGS: The cardiomediastinal silhouette is unremarkable. Mild mural calcification in the thoracic aorta. There is no airspace consolidation or pleural effusion. The bronchovascular markings are within normal limits, and the lungs are not hyperinflated. Tiny calcified granulomata in the lung bases. There is no pneumothorax or acute fracture. IMPRESSION: Vascular calcification without acute intrathoracic abnormality. Electronically signed by: Iggy Ortega MD 12/05/2019 7:46 AM CDT
[2019-12-09] MEDS ORDERED: PROPOFOL 200 MG/20 ML VIAL IV ONE (07:00)
[2019-12-09] MEDS ORDERED: DEXAMETHASONE INJ 10 MG/ML VIAL ONE (07:00)
[2019-12-09] MEDS ORDERED: fentaNYL CITRATE INJ 50 MCG/ML 2 ML AMP ONE (07:00)
[2019-12-09] MEDS ORDERED: MIDAZOLAM INJ 2 MG/2 ML VIAL ONE (07:00)
[2019-12-09] MEDS ORDERED: LIDOCAINE 1% 10 ML VIAL INJ ONE (07:00)
[2019-12-09] MEDS ORDERED: MAGNESIUM SULFATE INJ 1 GM/2 ML VIAL ONE (07:00)
[2019-12-09] MEDS ORDERED: ePHEDrine SULF 50 MG/ML ONE (07:00)
[2019-12-09] MEDS ORDERED: KETAMINE HCL 100 MG/ML VIAL ONE (07:00)
[2019-12-09] MEDS ORDERED: BUPIVACAINE 0.5% W/EPI 30 ML VIAL INJ ONE (08:21)
[2019-12-09] MEDS ORDERED: LACTATED RINGERS 1,000 ML IVS ONE (11:13)
[2019-12-09] MEDS ORDERED: HYDROmorphone HCL INJ 2 MG/ML VIAL IV ONE ×2 (11:15→11:25)
[2019-12-09] MEDS ORDERED: HYDROmorphone PCA 0.2 MG/ML 1 BAG BAG IVPB ONE (11:35)
--- NOTE | 2019-12-09 12:01 | OP ---
DATE OF PROCEDURE: 12/09/19 PREOPERATIVE DIAGNOSIS: 1. Symptomatic cholelithiasis. POSTOPERATIVE DIAGNOSIS: 1. Symptomatic cholelithiasis. PROCEDURE: 1. Laparoscopic cholecystectomy with difficult case modifier 22 due to extensive postoperative adhesions. 2. Laparoscopic adhesiolysis. SURGEON: Rolando Kirkpatrick MD. ANESTHESIA: General and local. FINDINGS: She had midline laparotomy scar as well as an additional upper midline from previous. We used an Carissa technique in the right upper quadrant. Once we got in, there were multiple adhesions along the midline around the umbilicus and right lateral abdomen that needed to be taken down for port placement. COMPLICATIONS: None. ESTIMATED BLOOD LOSS: Minimal. SPECIMEN: Gallbladder and stones. PLAN: Discharge. INDICATION: As stated. PROCEDURE: General anesthesia was induced. The patient was prepped and draped in sterile fashion. Marcaine 0.5% with epinephrine was used at all incision sites. The midline incision in the right upper quadrant was used. Transverse incision was made. An Carissa technique was used to enter the abdomen and we did. It was free superiorly, but obviously some scars just inferior to our incision, so we placed a 12 mm port, insufflated, looked in with the camera and identified all the scarring. The subxiphoid area had a window to place our normal port placement here, so we did under direct visualization. The camera was inserted and we saw the adhesions along the midline. These were all omentum. She also had an adhesion from her previous gastrostomy which was left in place where the stomach was adhered to the anterior abdominal wall. With blunt dissection, we were able to take down enough anterior wall adhesions, there was now bowel, this was all omentum. This was taken down so we could place our umbilical port and the additional right lateral port and had normal positioning. The patient was positioned. The gallbladder fundus was grasped and retracted superiorly and laterally. Some anterior adhesions were taken down, but the infundibulum was successfully dissected free. We could see the duct and artery to the triangle of Calot. Each was triply ligated as well as a small posterior tube that could have been a duct of Luschka or a vessel. The gallbladder was then routinely dissected off the fossa and removed through the subxiphoid incision. The fossa was examined. There was no bleeding. The clips were intact. There was no bleeding or bile leakage. The area was irrigated and aspirated. All aspirate was clear. We then examined our adhesiolysis again just to make sure there was no bleeding and no evidence of any bowel injury. Again, there was not. The right upper quadrants incision was a bit larger, so a suture passer was used to close that with a 0 Vicryl stitch. It was airtight and non-bleeding. The subxiphoid was closed with a 0 Vicryl. The remaining trocars were removed. There was no bleeding from the trocar sites. The abdomen was desufflated. The wounds were irrigated and closed with Monocryl. Dressings were applied. The patient was awakened and taken to Recovery in stable condition to be discharged. #[id number] cc: Rolando Wolf MD [facility]
[2019-12-09] MEDS ORDERED: traMADol HCL 50 MG TAB PO ONE (12:20)
[2019-12-09] MEDS ORDERED: LEVALBUTEROL NEBS 1.25 MG/3 ML VIAL NEB ONE (13:02)
[2019-12-09 13:32] VITALS: O2SAT 98
[2019-12-09 14:54] VITALS: BP 134/84; TEMP 96.7
== END 2019-12-09 13:25 | disposition home or self-care (01) ==
LOC: AMB 05:45
PROVIDERS: ATTEND Surgery
DX: K80.10 Calculus of gallbladder with chronic cholecystitis without obstruction (principal); K66.0 Peritoneal adhesions (postprocedural) (postinfection); I10 Essential (primary) hypertension; K21.9 Gastro-esophageal reflux disease without esophagitis; Z88.1 Allergy status to other antibiotic agents; Z88.5 Allergy status to narcotic agent; Z88.8 Allergy status to other drugs, medicaments and biological substances; Z79.899 Other long term (current) drug therapy; Z87.891 Personal history of nicotine dependence
CPT/HCPCS: 00790; 36415; 47562; 71046; 80053; 85025; 93005; 94640; 94760; J1100; J1170; J2250; J3010; J3475; J3490; J7120

== ENCOUNTER → 2020-01-05 | Outpatient (CLI) | payer MEDICARE, OTHER | LOC: GMAJ 10:00 | PROVIDERS: ATTEND Family Medicine | DX: E03.8 Other specified hypothyroidism (principal) ==

== ENCOUNTER 2020-02-19 11:10 | Emergency (ER) | payer MEDICARE, OTHER ==
[2020-02-19 11:30] VITALS: BP 175/100; TEMP 97.4; O2SAT 97
[2020-02-19] MEDS ORDERED: predniSONE 20 MG TAB PO ONE (11:31)
--- NOTE | 2020-02-19 11:35 | ED.PDOC ---
History of Present Illness - General Chief Complaint: Skin/Abrasion/Tear Stated Complaint: Rash on R wrist, under R breast and pubic area Time Seen by Provider: 02/19/20 11:16 Source: patient Exam Limitations: no limitations - History of Present Illness Initial Comments: The patient is a 74-year-old female presented emergency room secondary to a rash that has developed that is pruritic. It started about 6 days ago after she pulled up a bite of some sort. Started with a rash to her right wrist and now she has a small rash area underneath the right breast and over the right suprapubic area. No evidence of abscess formation. No pustules. No extending erythema. Again it is very pruritic. She has been using [id number] antihistamines with minimal relief. Timing/Duration: 1 week Severity: moderate Improving Factors: nothing Worsening Factors: nothing Associated Symptoms: denies symptoms Allergies/Adverse Reactions: Allergies Moxifloxacin [From Avelox] Allergy (Unknown, Verified 02/19/20 11:31) Amoxicillin [From Augmentin] Allergy (Verified 02/19/20 11:31) diarrhea Cetirizine [From Zyrtec] Allergy (Verified 02/19/20 11:31) Citalopram [From Celexa] Allergy (Verified 02/19/20 11:31) Clavulanic Acid [From Augmentin] Allergy (Verified 02/19/20 11:31) Codeine Allergy (Verified 02/19/20 11:31) rash itch Diazepam [From Valium] Allergy (Verified 02/19/20 11:31) anixety Ezetimibe [From Zetia] Allergy (Verified 02/19/20 11:31) Levofloxacin [From Levaquin] Allergy (Verified 02/19/20 11:31) heart skip a beat Loracarbef [From Lorabid] Allergy (Verified 02/19/20 11:31) Meperidine [From Demerol HCl] Allergy (Verified 02/19/20 11:31) anxious x 100 Rosuvastatin [From Crestor] Allergy (Verified 02/19/20 11:31) Sulfamethoxazole w/Trimethoprim [From Bactrim] Allergy (Verified 02/19/20 11:31) Unknown Home Medications: Ambulatory Orders Metoprolol Succinate [Metoprolol Succinate ER] 200 mg PO BID 12/19/13 Ezetimibe [Zetia] 10 mg PO DAILY 02/13/18 Fexofenadine HCl [Cassandra Allergy] 180 mg PO DAILY 02/13/18 Levothyroxine Sodium [Synthroid] 0.025 mg PO 0700 02/13/18 Amlodipine Besylate 5 mg PO DAILY 09/13/19 Cholecalciferol [D3 Vitamin] 400 unit PO DAILY 09/13/19 Hydrochlorothiazide 12.5 mg PO DAILY 09/13/19 Pantoprazole Sodium 40 mg PO DAILY 09/13/19 Gabapentin 300 mg PO BID 12/05/19 predniSONE [Prednisone] 20 mg PO DAILY #5 tab 02/19/20 Review of Systems - Review of Systems Constitutional: States: no symptoms reported EENTM: States: no symptoms reported Respiratory: States: no symptoms reported Cardiology: States: no symptoms reported Gastrointestinal/Abdominal: States: no symptoms reported Genitourinary: States: no symptoms reported Musculoskeletal: States: no symptoms reported Skin: States: see HPI Neurological: States: no symptoms reported Endocrine: States: no symptoms reported All other Systems: No Change from Baseline Past Medical History (General) - Patient Medical History Hx Seizures: No Hx Stroke: No Hx Dementia: No Hx Asthma: No Hx of COPD: No Hx Cardiac Disorders: No Hx Congestive Heart Failure: No Hx Pacemaker: No Hx Hypertension: Yes Hx Thyroid Disease: Yes - Hypo Hx Diabetes: No Hx Gastroesophageal Reflux: No Hx Renal Disease: No Hx Cancer: Yes - pharangeal Hx MRSA: No Surgical History: colectomy, tonsillectomy, Hysterectomy - Vaccination History Hx Tetanus, Diphtheria Vaccination: No Hx Influenza Vaccination: Yes Hx Pneumococcal Vaccination: Yes - Social History Hx Tobacco Use: Yes Hx Alcohol Use: No Hx Substance Use: No Hx Substance Use Treatment: No Hx Depression: No - Female History Patient is a Female of Child Bearing Age (10 -59 yrs old): No Patient : No Family Medical History - Family History Mother Family History: Unknown Physical Exam - Physical Exam General Appearance: Alert, Comfortable, No apparent distress Ears, Nose, Throat: normal pharynx Neck: non-tender, supple Respiratory: no respiratory distress, no accessory muscle use Cardiovascular/Chest: normal peripheral pulses, no edema Peripheral Pulses: radial,right: 2+, radial,left: 2+ Gastrointestinal/Abdominal: non tender, soft Rectal Exam: deferred Extremity: normal range of motion, non-tender, no calf tenderness, normal capillary refill Neurologic: continuous miner II-XII nml as tested, alert, normal mood/affect, oriented x 3 Skin Exam: other - Areas of erythema as above. Comments: Vital Signs - 24 hr 02/19/20 11:10 Temperature 97.4 F L Pulse Rate [ 70 Pulse ox] Respiratory 16 Rate Blood Pressure 175/100 [L arm] O2 Sat by Pulse 97 Oximetry Progress - Progress Progress: 02/19/20 11:33 The patient is a 74-year-old female presented emergency room secondary to what appeared to be several areas of contact dermatitis. Patient can continue to take rofq-kow-fflekul antihistamines. Additionally at this point the patient will be placed on prednisone 20 mg daily for the next 5 days to help reduce the inflammatory cycle. The patient can also use [id number] hydrocortisone 10 once or twice daily on the areas. If she wishes she can use Cetaphil cream topically 3-4 times a day to help reduce symptoms. It will likely be another week before symptoms completely resolve. No evidence of any superimposed infection at this time. Source is likely poison oak, poison tere or sumac. Keep routine follow-up with primary care doctor. sondra quinones [id number] Departure - Departure Clinical Impression: Contact dermatitis and eczema Disposition: Discharge to Home or Self Care Condition: Fair Departure Forms: ED Discharge - Pt. Copy, Patient Portal Self Enrollment Instructions: DI for Abrasion, Contact Dermatitis (DC) Diet: regular diet Activity: increase activity as tolerated Referrals: Rolando Wolf MD [Primary Care Provider] - 1-2 Weeks Prescriptions: predniSONE [Prednisone] 20 mg PO DAILY #5 tab Home Medications: Ambulatory Orders Metoprolol Succinate [Metoprolol Succinate ER] 200 mg PO BID 12/19/13 Ezetimibe [Zetia] 10 mg PO DAILY 02/13/18 Fexofenadine HCl [Cassandra Allergy] 180 mg PO DAILY 02/13/18 Levothyroxine Sodium [Synthroid] 0.025 mg PO 0700 02/13/18 Amlodipine Besylate 5 mg PO DAILY 09/13/19 Cholecalciferol [D3 Vitamin] 400 unit PO DAILY 09/13/19 Hydrochlorothiazide 12.5 mg PO DAILY 09/13/19 Pantoprazole Sodium 40 mg PO DAILY 09/13/19 Gabapentin 300 mg PO BID 12/05/19 predniSONE [Prednisone] 20 mg PO DAILY #5 tab 02/19/20 Additional Instructions: The patient is a 74-year-old female presented emergency room secondary to what appeared to be several areas of contact dermatitis. Patient can continue to take qfuf-byc-djwqhhi antihistamines. Additionally at this point the patient will be placed on prednisone 20 mg daily for the next 5 days to help reduce the inflammatory cycle. The patient can also use qwcq-sbi-netlhke hydrocortisone 10 once or twice daily on the areas. If she wishes she can use Cetaphil cream topically 3-4 times a day to help reduce symptoms. It will likely be another week before symptoms completely resolve. No evidence of any superimposed infection at this time. Source is likely poison oak, poison tere or sumac. Keep routine follow-up with primary care doctor. Blood pressures are also moderately elevated here today. They do need to be followed at home and the patient does need to remain compliant with her blood pressure medications.
== END 2020-02-19 11:44 | disposition home or self-care (01) ==
LOC: ER 11:10
DX: L25.9 Unspecified contact dermatitis, unspecified cause (principal); I10 Essential (primary) hypertension; E03.9 Hypothyroidism, unspecified; Z85.818 Personal history of malignant neoplasm of other sites of lip, oral cavity, and pharynx; Z87.891 Personal history of nicotine dependence; Z88.8 Allergy status to other drugs, medicaments and biological substances; Z88.1 Allergy status to other antibiotic agents; Z88.5 Allergy status to narcotic agent; Z88.2 Allergy status to sulfonamides; Z79.899 Other long term (current) drug therapy

== ENCOUNTER → 2020-02-29 | Outpatient (CLI) | payer MEDICARE, OTHER | LOC: GMAJ 14:35 | PROVIDERS: ATTEND Family Medicine | DX: R39.15 Urgency of urination (principal) ==

== ENCOUNTER → 2020-03-23 | Outpatient (CLI) | payer MEDICARE, OTHER | LOC: GMAJ 03-22 09:14 | PROVIDERS: ATTEND Family Medicine | DX: N39.0 Urinary tract infection, site not specified (principal); N18.3 Chronic kidney disease, stage 3 (moderate) ==

== ENCOUNTER → 2020-04-27 | Outpatient (CLI) | payer MEDICARE, OTHER | LOC: GMAJ 13:22 | PROVIDERS: ATTEND Family Medicine | DX: N30.00 Acute cystitis without hematuria (principal) ==

== ENCOUNTER → 2020-05-28 | Outpatient (CLI) | payer MEDICARE, OTHER | LOC: GMAJ 16:04 | PROVIDERS: ATTEND Family Medicine | DX: B34.2 Coronavirus infection, unspecified (principal); R71.8 Other abnormality of red blood cells; R09.02 Hypoxemia ==

== ENCOUNTER → 2020-07-04 | Outpatient (CLI) | payer MEDICARE, OTHER ==
--- NOTE | 2020-07-05 19:02 | MAM ---
EXAM DESCRIPTION: 3D Screening BILATERAL : Digital Mammography. CLINICAL HISTORY: 75 years Female SCREEN . No complaints. No personal or family history of breast cancer. Menarche age 15. Caliber of age 19. Menopause age unknown. HRT 5 are more years ago.. Lifetime risk of developing breast cancer (Tyrer-Cuzick model)(%): 2.7. COMPARISON: Bilateral screening digital breast tomosynthesis April 2019 and April 2018 TECHNIQUE: Bilateral CC and MLO projection full-field images, digital tomosynthesis mammographic technique. Bilateral digital 2-D full-field MLO images. CAD available for 2-D images. FINDINGS: The breast parenchymal density pattern is: Scattered areas of fibroglandular density. Solitary microcalcifications. Vascular calcifications. Coarse calcifications. Most of the microcalcifications are associated with the denser fibroglandular tissues. Axillary nodes. No skin thickening or nipple retraction No new focal, stellate mass or density, focal asymmetry , and no suspicious microcalcifications bilaterally. Stable mammograms compared to prior study. IMPRESSION: Benign exam. BIRAD CATEGORY: 2 BENIGN FINDINGS. RECOMMENDATIONS: FOLLOW UP: Routine digital bilateral mammographic screening, one year interval from June 2020. Written communication explaining the IMPRESSION and follow-up, will be mailed to the patient and referring health care provider. According to the [employer], yearly mammograms are recommended starting at age 40 and continuing as long as a woman is in good health. Any breast change noted on a breast self-exam should be reported promptly to the patient's healthcare provider. Breast MRI is recommended for women with an approximately 20-25% or greater lifetime risk of breast cancer, including women with a strong family history of breast or ovarian cancer and women who have been treated for Hodgkin's disease. A negative mammographic report should not delay tissue diagnosis in patients with significant clinical history or physical findings. Extremely dense breast tissue limits the sensitivity of digital mammography. Electronically signed by: Toni Grider MD 07/05/2020 7:01 PM [employer]
== END ==
LOC: MAMMO 10:43
PROVIDERS: ATTEND Family Medicine
DX: Z12.31 Encounter for screening mammogram for malignant neoplasm of breast (principal)

== ENCOUNTER → 2020-08-15 | Outpatient (CLI) | payer MEDICARE, OTHER ==
--- NOTE | 2020-08-16 10:25 | CT ---
EXAM DESCRIPTION: Abdoment/Pelvis w/o Contrast CLINICAL HISTORY: 75 years, Female, uti COMPARISON: Previous CT pelvis June 27, 2011 TECHNIQUE: CT of the abdomen and pelvis is performed according to our non contrast protocol. FINDINGS: The lung bases are clear. Low density liver consistent with diffuse hepatic steatosis. Multiple calcified granulomas in the spleen and liver. Otherwise the liver, spleen, and pancreas are unremarkable. Gallbladder is surgically absent. Duodenal diverticulum near the pancreatic head. Adrenal glands appear normal. The right kidney is unremarkable. The left kidney is unremarkable. No renal stones or hydronephrosis. Small bowel loops appear normal in caliber with normal wall thickness. There is no lymphadenopathy, inflammation, or free fluid observed. In the pelvis, the appendix is surgically absent. No inflammation around the cecum or terminal ileum or sigmoid colon. Surgical changes in the region of the right colon. No stones in the distal ureters or bladder. Bladder wall appears mildly thickened but the bladder is incompletely distended. Rectal wall thickness is normal for degree of distention. No free fluid or mass in the pelvis. Uterus and ovaries are not seen, evidently surgically absent. No inguinal or lower pelvic adenopathy. Coronal and sagittal reformatted images confirm the findings. Advanced degenerative disc disease at L2-3. 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 IMPRESSION: No acute upper abdominal process. No acute process in the pelvis. This exam was performed according to our departmental dose-optimization program, which includes automated exposure control, adjustment of the mA and/or kV according to patient size and/or use of iterative reconstruction technique. Total DLP equals 888.12 mGycm. Electronically signed by: Chapito Malcolm MD 08/16/2020 10:23 AM [facility]
== END ==
LOC: CT 14:15
PROVIDERS: ATTEND Urology
DX: N39.0 Urinary tract infection, site not specified (principal)